=== PATIENT | female | born 1955 | race Caucasian/White ===

== ENCOUNTER → 2023-02-11 | Outpatient (CLI) | payer MEDICAID ==
[~2023-02-11] MED LIST: ALBUTEROL SULF 2.5 MG/0.5ML(0.5%) NEB SOLN ONE
== END | disposition home or self-care (01) ==
LOC: RT 11:55
PROVIDERS: ATTEND Internal Medicine Pulmonary Disease
DX: J44.9 Chronic obstructive pulmonary disease, unspecified (principal); R06.00 Dyspnea, unspecified
CPT/HCPCS: 94060; 94727; 94729

== ENCOUNTER 2023-12-07 04:59 | Inpatient (IN) | payer OTHER, MEDICAID ==
[~2023-12-07] VITALS: Ht 157.5 cm; Wt 82.7 kg
[2023-12-07] VITALS (9 sets, daily range): PULSE 69–98; RESP 14–22; O2SAT 96–100
[2023-12-07 06:17] LABS: Basophils # (auto) 0 10 ^3/uL (0-0.2); Basophils % (auto) 0.1 % (0.0-2.0); Eosinophils # (auto) 0.1 10 ^3/uL (0-0.8); Eosinophils % (auto) 1.5 % (0.0-7.0); Hematocrit 35.9 % (36.0-46.0); Hemoglobin 11.8 g/dL (12.2-16.2); Lymphocytes # (auto) 0.5 10 ^3/uL (0.4-5.4); Lymphocytes % (auto) 6.4 % (10.0-50.0); Mean Corpuscular Hemoglobin 28.4 pg (28.0-32.0); Mean Corpuscular Hgb Conc. 32.7 g/dL (32.0-36.0); Mean Corpuscular Volume 86.8 fL (80.0-100.0); Monocytes # (auto) 1.4 10 ^3/uL (0-1.3); Monocytes % (auto) 17.1 % (0.0-12.0); Neutrophils # (auto) 6.3 10 ^3/uL (1.6-8.6); Neutrophils % (auto) 74.9 % (37.0-80.0); Red Blood Cells 4.14 10^6/uL (4.0-5.20); Red Cell Distribution Width 15.6 % (11.8-14.3); White Blood Cell 8.4 10^3/uL (4.4-10.8)
[2023-12-07 06:27] LABS: Alanine Aminotransferase 25 U/L (7-40); Albumin 4.3 g/dL (3.2-4.8); Alkaline Phosphatase 63 U/L (46-116); Anion Gap 5 (5-15); Aspartate Aminotransferase 19 U/L (13-40); BUN/Creatinine Ratio 11.7 (10.0-20.0); Bilirubin, Total 0.4 mg/dL (0.2-1.0); Blood Urea Nitrogen 11 mg/dL (9-23); Calcium 9.2 mg/dL (8.7-10.4); Carbon Dioxide 29 mmol/L (20-30); Chloride 103 mmol/L (98-107); Glucose 109 mg/dL (74-106); Magnesium 1.8 mg/dL (1.6-2.6); Potassium 3.7 mmol/L (3.5-5.1); Sodium 137 mmol/L (136-145); Total Protein 6.1 g/dL (5.7-8.2)
[2023-12-07 06:31] LABS: INR 1.03 (0.9-1.15); Partial Thromboplastin Time 25.7 SEC (24.5-34.5); Prothrombin Time 10.8 sec (9.3-11.8)
[2023-12-07] MEDS: PIPERACILLIN-TAZOB 3.375GM 100 ML IV ONE (10:08)
[2023-12-07] MEDS: methylPREDNISolone SOD SUCC 125 MG/2 ML VL IV ONE (10:08)
[2023-12-07] MEDS: ALBUTEROL SULF 2.5 MG/0.5ML(0.5%) NEB SOLN NEB ONE (10:23)
[2023-12-07] MEDS: IPRATROPIUM BROM 0.5 MG/2.5ML INH SOL NEB ONE (10:23)
[2023-12-07 10:31] LABS: Urine Bacteria FEW /hpf (None Seen); Urine Blood Negative /uL (Negative); Urine Clarity Clear (Clear); Urine Protein, UAD Negative (Negative); Urine Specific Gravity 1.014 (1.001-1.035); Urine Urobilinogen Normal (Negative); Urine WBC 1 /hpf (0 - 5)
[2023-12-07 10:33] LABS: Urine Color Straw (Yellow)
[2023-12-07] MEDS ORDERED: MONT-8 PO (15:14)
[2023-12-07] MEDS ORDERED: OMEP1CAP70 PO (15:14)
[2023-12-07] MEDS ORDERED: AMOXTAB PO (15:14)
[2023-12-07] MEDS ORDERED: ATOR10TA52 PO (15:14)
[2023-12-07] MEDS ORDERED: ALBUTEROL SULF 2.5 MG/0.5ML(0.5%) NEB SOLN NEB PRN (15:15)
[2023-12-07] MEDS: SODIUM CHLORIDE 0.9% 1,000 ML IV SCH (15:15)
[2023-12-07] MEDS: ACETAMINOPHEN 325 MG TAB PO PRN (18:05)
[2023-12-07] MEDS: ALBUTEROL SULF 2.5 MG/0.5ML(0.5%) NEB SOLN NEB SCH (18:05)
[2023-12-07] MEDS: IPRATROPIUM BROM 0.5 MG/2.5ML INH SOL NEB SCH (18:05)
[2023-12-07] MEDS: IOHEXOL 350 MG/ML 100ML IJ ONE (20:05)
[2023-12-07] MEDS: ATORVASTATIN 20 MG TAB PO SCH (22:01)
[2023-12-08] VITALS (20 sets, daily range): BP systolic 117–136; BP diastolic 70–84; PULSE 72–90; RESP 14–20; TEMP 97.1–98.5; O2SAT 86–100
[2023-12-08 06:18] LABS: Hemoglobin 12.3 g/dL (12.2-16.2); Mean Corpuscular Hemoglobin 27.9 pg (28.0-32.0); Mean Corpuscular Hgb Conc. 32.4 g/dL (32.0-36.0); Mean Corpuscular Volume 86.2 fL (80.0-100.0); Red Blood Cells 4.41 10^6/uL (4.0-5.20); Red Cell Distribution Width 16.1 % (11.8-14.3); White Blood Cell 6.7 10^3/uL (4.4-10.8)
[2023-12-08 06:35] LABS: Alanine Aminotransferase 26 U/L (7-40); Albumin 4.5 g/dL (3.2-4.8); Alkaline Phosphatase 62 U/L (46-116); Anion Gap 5 (5-15); Aspartate Aminotransferase 25 U/L (13-40); BUN/Creatinine Ratio 15.7 (10.0-20.0); Blood Urea Nitrogen 14 mg/dL (9-23); Calcium 10.2 mg/dL (8.5-10.1); Carbon Dioxide 30 mmol/L (20-30); Chloride 102 mmol/L (98-107); Glucose 104 mg/dL (74-106); Potassium 4.3 mmol/L (3.5-5.1); Sodium 137 mmol/L (136-145)
[2023-12-08 06:36] LABS: Bilirubin, Total 0.4 mg/dL (0.2-1.0); Total Protein 6.5 g/dL (5.7-8.2)
[2023-12-08 06:56] LABS: Band Neutrophils % (manual) 0; Basophils % (manual) 0 (0.0-2.0); Blast Cells 0; Eosinophils % (manual) 0 (0-7); Myelocytes % 0; Promyelocytes % 0; Reactive Lymphocytes 0
[2023-12-08] MEDS ORDERED: AZIT-43 PO (09:50)
[2023-12-08] MEDS ORDERED: PRED20TA2 PO (09:50)
[2023-12-08] MEDS ORDERED: FLUT220A6 INH (09:50)
[2023-12-08] MEDS ORDERED: IPRA0.00 NEB (09:50)
[2023-12-08] MEDS ORDERED: ALBU2TAB11 PO (09:50)
[2023-12-08] MEDS ORDERED: ALBU108A5 INH (09:50)
[2023-12-08] MEDS: OMEPRAZOLE 40MG/20ML ORAL SUSP PO SCH (10:00)
[2023-12-08] MEDS: ENOXAPARIN SOD 40 MG/0.4 ML SYRINGE SC SCH (10:14)
[2023-12-08] MEDS: MONTELUKAST SODIUM 10 MG TAB PO SCH (10:14)
[2023-12-08 10:48] LABS: Lymphocytes % (manual) 12 (10.0-50.0); Metamyelocytes % 2; Monocytes % (manual) 16 (0-12); Platelet Estimate Adequate
[2023-12-08] MEDS: guaiFENesin-DM 100/10mg/5ml SYR PO PRN (12:10)
[2023-12-08] MEDS: cefTRIAXone 1GM/50ML D5W 50 ML IV ONE (13:52)
[2023-12-08] MEDS: methylPREDNISolone SOD SUCC 125 MG/2 ML VL IV SCH (22:50)
[2023-12-09] VITALS (19 sets, daily range): BP systolic 99–129; BP diastolic 55–77; PULSE 70–94; RESP 15–22; TEMP 97.4–98.2; O2SAT 91–100
[2023-12-09 05:40] LABS: COVID19 ANTIGEN SOFIA FIA NEGATIVE (NEGATIVE)
[2023-12-09] MEDS: PANTOPRAZOLE 40 MG TAB PO SCH (08:50)
[2023-12-09] MEDS: cefTRIAXone 1GM/50ML D5W 50 ML IV SCH (08:51)
[2023-12-10] VITALS (10 sets, daily range): BP systolic 117–143; BP diastolic 67–78; PULSE 67–92; RESP 16–19; TEMP 37.1; O2SAT 91–100
[2023-12-10] MEDS ORDERED: METH4PAK PO (08:30)
[2023-12-10] MEDS ORDERED: AZIT500T66 PO (08:30)
[2023-12-10 10:33] LABS: Base Excess 4.1 mmol/L (-2.0-2.0)
== END 2023-12-10 15:30 | disposition home or self-care (01) | DRG 177 ==
LOC: EDBD 04:59 → ER 04:59 → OVERFLOW 15:12 → CENTRAL 12-08 09:40
PROVIDERS: ADMIT Nurse Practitioner Family; ATTEND Family Medicine
DX: J15.69 Pneumonia due to other Gram-negative bacteria (principal); J96.01 Acute respiratory failure with hypoxia; J45.41 Moderate persistent asthma with (acute) exacerbation; J15.9 Unspecified bacterial pneumonia; K21.9 Gastro-esophageal reflux disease without esophagitis; E66.01 Morbid (severe) obesity due to excess calories; E78.00 Pure hypercholesterolemia, unspecified; Z20.822 Contact with and (suspected) exposure to COVID-19; Z68.33 Body mass index [BMI] 33.0-33.9, adult
CPT/HCPCS: 36415; 36600; 71045; 71275; 80053; 81001; 82805; 83735; 83880; 84484; 85007; 85025; 85027; 85379; 85610; 85730; 87426; 93005; 94640; 96361; 96365; 96375; 99291; G0378; J2543

== ENCOUNTER 2023-12-31 16:31 | Inpatient (IN) | payer OTHER, MEDICAID ==
[~2023-12-31] VITALS: Ht 157.5 cm; Wt 74.0 kg
[~2023-12-31 16:31] MED LIST changes: +ALBU108A5 INH; +ALBU2TAB11 PO; -ALBUTEROL SULF 2.5 MG/0.5ML(0.5%) NEB SOLN ONE; +AMOXTAB PO; +ATOR10TA52 PO; +AZIT-43 PO; +AZIT500T66 PO; +FLUT220A6 INH; +IPRA0.00 NEB; +METH4PAK PO; +MONT-8 PO; +OMEP1CAP70 PO; +PRED20TA2 PO
[2023-12-31] MEDS: IPRATROPIUM BROM 0.5 MG/2.5ML INH SOL NEB ONE (17:23)
[2023-12-31] MEDS: ALBUTEROL SULF 2.5 MG/0.5ML(0.5%) NEB SOLN NEB ONE (17:23)
[2023-12-31 17:58] LABS: Basophils # (auto) 0 10 ^3/uL (0-0.2); Basophils % (auto) 0.6 % (0.0-2.0); Eosinophils # (auto) 0.9 10 ^3/uL (0-0.8); Eosinophils % (auto) 14.1 % (0.0-7.0); Hematocrit 36.3 % (36.0-46.0); Hemoglobin 11.5 g/dL (12.2-16.2); Lymphocytes # (auto) 2.1 10 ^3/uL (0.4-5.4); Lymphocytes % (auto) 33.4 % (10.0-50.0); Mean Corpuscular Hemoglobin 27.7 pg (28.0-32.0); Mean Corpuscular Hgb Conc. 31.7 g/dL (32.0-36.0); Mean Corpuscular Volume 87.4 fL (80.0-100.0); Monocytes # (auto) 0.8 10 ^3/uL (0-1.3); Monocytes % (auto) 12.5 % (0.0-12.0); Neutrophils # (auto) 2.5 10 ^3/uL (1.6-8.6); Neutrophils % (auto) 39.4 % (37.0-80.0); Red Blood Cells 4.15 10^6/uL (4.0-5.20); Red Cell Distribution Width 16.2 % (11.8-14.3); White Blood Cell 6.3 10^3/uL (4.4-10.8)
[2023-12-31 18:06] LABS: Chloride 107 mmol/L (98-107); Potassium 4.1 mmol/L (3.5-5.1); Sodium 142 mmol/L (136-145)
[2023-12-31 18:07] LABS: Anion Gap 4 (5-15); Calcium 9.4 mg/dL (8.5-10.1); Carbon Dioxide 31 mmol/L (20-30)
[2023-12-31 18:12] LABS: BUN/Creatinine Ratio 13.2 (10.0-20.0); Blood Urea Nitrogen 12 mg/dL (9-23); Glucose 85 mg/dL (74-106)
[2023-12-31] MEDS: methylPREDNISolone SOD SUCC 125 MG/2 ML VL IV ONE (19:40)
[2024-01-01] VITALS (13 sets, daily range): BP systolic 139–154; BP diastolic 83–99; PULSE 82–97; RESP 16–22; TEMP 98.2–98.9; O2SAT 94–99
[2024-01-01] MEDS: IPRATROPIUM BROM 0.5 MG/2.5ML INH SOL NEB ONE (00:44)
[2024-01-01] MEDS: ALBUTEROL SULF 2.5 MG/0.5ML(0.5%) NEB SOLN NEB ONE (00:44)
[2024-01-01] MEDS ORDERED: HYDROcodone-ACET 5/325MG TAB PO PRN (03:00)
[2024-01-01] MEDS ORDERED: MORPHINE SULFATE INJ 2 MG/ml SYRG IV PRN (03:00)
[2024-01-01] MEDS ORDERED: ONDANSETRON HCL 4 MG/2 ML VIAL IV PRN (03:00)
[2024-01-01] MEDS ORDERED: DOCUSATE SOD 100 MG CAP PO PRN (03:00)
[2024-01-01] MEDS ORDERED: NITROGLYCERIN 0.4 MG SL TAB SL PRN (03:00)
[2024-01-01] MEDS: SODIUM CHLOR 0.9% PF (SALINE LOCK) 10ML VIAL/SYR IV SCH (06:10)
[2024-01-01] MEDS: methylPREDNISolone SOD SUCC 40 MG/ML VL IV SCH ×2 (06:16→11:19)
[2024-01-01 07:12] LABS: Basophils # (auto) 0 10 ^3/uL (0-0.2); Eosinophils # (auto) 0 10 ^3/uL (0-0.8); Eosinophils % (auto) 0.1 % (0.0-7.0); Hematocrit 36.1 % (36.0-46.0); Hemoglobin 11.7 g/dL (12.2-16.2); Lymphocytes # (auto) 0.6 10 ^3/uL (0.4-5.4); Mean Corpuscular Hemoglobin 28.3 pg (28.0-32.0); Mean Corpuscular Hgb Conc. 32.5 g/dL (32.0-36.0); Mean Corpuscular Volume 87.1 fL (80.0-100.0); Monocytes # (auto) 0.2 10 ^3/uL (0-1.3); Neutrophils # (auto) 7.8 10 ^3/uL (1.6-8.6); Neutrophils % (auto) 90.9 % (37.0-80.0); Red Blood Cells 4.15 10^6/uL (4.0-5.20); White Blood Cell 8.6 10^3/uL (4.4-10.8)
[2024-01-01 07:33] LABS: Alanine Aminotransferase 30 U/L (7-40); Albumin 4.4 g/dL (3.2-4.8); Alkaline Phosphatase 77 U/L (46-116); Anion Gap 8 (5-15); Aspartate Aminotransferase 24 U/L (13-40); BUN/Creatinine Ratio 14.1 (10.0-20.0); Bilirubin, Total 0.5 mg/dL (0.2-1.0); Blood Urea Nitrogen 13 mg/dL (9-23); Calcium 9.7 mg/dL (8.5-10.1); Carbon Dioxide 24 mmol/L (20-30); Chloride 105 mmol/L (98-107); Glucose 195 mg/dL (74-106); Potassium 4.2 mmol/L (3.5-5.1); Sodium 137 mmol/L (136-145); Total Protein 6.6 g/dL (5.7-8.2)
[2024-01-01 09:17] LABS: Urine Bacteria NONE SEEN /hpf (None Seen); Urine Blood Negative /uL (Negative); Urine Clarity Clear (Clear); Urine Color Yellow (Yellow); Urine Mucus FEW (None Seen); Urine Protein, UAD TRACE (Negative); Urine Specific Gravity 1.032 (1.001-1.035); Urine Urobilinogen Normal (Negative); Urine WBC 1 /hpf (0 - 5); Urine pH 5.5 (5.0-8.0)
[2024-01-01] MEDS: ALBUTEROL SULF 2.5 MG/0.5ML(0.5%) NEB SOLN NEB PRN (09:53)
[2024-01-01] MEDS: IPRATROPIUM BROM 0.5 MG/2.5ML INH SOL NEB PRN (09:53)
[2024-01-01] MEDS: FAMOTIDINE (10MG/ML) 2ML VL IV SCH (10:35)
[2024-01-01] MEDS: ZINC SULFATE 220mg CAP or TAB PO SCH (10:35)
[2024-01-01] MEDS: ACETAMINOPHEN 325 MG TAB PO PRN (11:19)
[2024-01-01] MEDS: FUROSEMIDE 20 MG/2 ML VIAL IV SCH (21:37)
[2024-01-01] MEDS: guaiFENesin-DM 100/10mg/5ml SYR PO PRN (21:38)
[2024-01-02] VITALS (10 sets, daily range): BP systolic 120–149; BP diastolic 63–100; PULSE 75–94; RESP 17–20; TEMP 97.1–98.3; O2SAT 93–98
[2024-01-02 06:20] LABS: Basophils # (auto) 0 10 ^3/uL (0-0.2); Basophils % (auto) 0.1 % (0.0-2.0); Eosinophils # (auto) 0 10 ^3/uL (0-0.8); Hematocrit 34.2 % (36.0-46.0); Hemoglobin 10.8 g/dL (12.2-16.2); Lymphocytes % (auto) 7.6 % (10.0-50.0); Mean Corpuscular Hemoglobin 27.7 pg (28.0-32.0); Mean Corpuscular Hgb Conc. 31.7 g/dL (32.0-36.0); Mean Corpuscular Volume 87.5 fL (80.0-100.0); Monocytes # (auto) 0.9 10 ^3/uL (0-1.3); Monocytes % (auto) 7.1 % (0.0-12.0); Neutrophils # (auto) 11.1 10 ^3/uL (1.6-8.6); Neutrophils % (auto) 85.2 % (37.0-80.0); Red Blood Cells 3.91 10^6/uL (4.0-5.20); Red Cell Distribution Width 15.8 % (11.8-14.3)
[2024-01-02 06:36] LABS: Alanine Aminotransferase 23 U/L (7-40); Alkaline Phosphatase 64 U/L (46-116); Anion Gap 7 (5-15); Aspartate Aminotransferase 15 U/L (13-40); BUN/Creatinine Ratio 18.2 (10.0-20.0); Blood Urea Nitrogen 18 mg/dL (9-23); Carbon Dioxide 26 mmol/L (20-30); Chloride 104 mmol/L (98-107); Glucose 161 mg/dL (74-106); Sodium 137 mmol/L (136-145)
[2024-01-02 06:37] LABS: Bilirubin, Total 0.4 mg/dL (0.2-1.0); Total Protein 6.1 g/dL (5.7-8.2)
[2024-01-02] MEDS: cefTRIAXone 1GM/50ML D5W 50 ML IV ONE (12:23)
[2024-01-02] MEDS: AZITHROMYCIN 500MG/ 250ML 250 ML IV ONE (13:02)
[2024-01-03] VITALS (9 sets, daily range): BP systolic 111–144; BP diastolic 59–73; PULSE 69–88; RESP 16–22; TEMP 97.8–97.9; O2SAT 88–98
[2024-01-03] MEDS: cefTRIAXone 1GM/50ML D5W 50 ML IV SCH (08:36)
[2024-01-03] MEDS: AZITHROMYCIN 500MG/ 250ML 250 ML IV SCH (09:39)
[2024-01-03] MEDS ORDERED: AZIT500T66 PO (10:37)
[2024-01-03] MEDS ORDERED: PRED20TA2 PO (10:37)
[2024-01-03] MEDS: IPRATROPIUM BROM 0.5 MG/2.5ML INH SOL NEB SCH (11:18)
[2024-01-03] MEDS: ALBUTEROL SULF 2.5 MG/0.5ML(0.5%) NEB SOLN NEB SCH (11:18)
== END 2024-01-03 15:45 | disposition home or self-care (01) | DRG 189 ==
LOC: ER 16:31 → TELE 01-01 03:04 → TELE-WESTW 01-01 15:08
PROVIDERS: ADMIT Internal Medicine Pulmonary Disease; ATTEND Internal Medicine Pulmonary Disease
DX: J96.01 Acute respiratory failure with hypoxia (principal); J45.901 Unspecified asthma with (acute) exacerbation; E78.00 Pure hypercholesterolemia, unspecified; K21.9 Gastro-esophageal reflux disease without esophagitis; E66.01 Morbid (severe) obesity due to excess calories; E87.70 Fluid overload, unspecified; Z90.710 Acquired absence of both cervix and uterus; Z68.29 Body mass index [BMI] 29.0-29.9, adult
CPT/HCPCS: 36415; 71046; 80048; 80053; 81001; 83605; 83880; 84484; 85025; 93970; 94640; G0378; J3490

== ENCOUNTER 2024-01-23 18:40 | Inpatient (IN) | payer OTHER, MEDICAID ==
[~2024-01-23] VITALS: Ht 157.5 cm; Wt 81.0 kg
[2024-01-23 21:18] LABS: Hematocrit 34.8 % (36.0-46.0); Mean Corpuscular Hemoglobin 27.4 pg (28.0-32.0); Mean Corpuscular Hgb Conc. 31.7 g/dL (32.0-36.0); Mean Corpuscular Volume 86.2 fL (80.0-100.0); Red Blood Cells 4.03 10^6/uL (4.0-5.20); Red Cell Distribution Width 15.4 % (11.8-14.3); White Blood Cell 6.8 10^3/uL (4.4-10.8)
[2024-01-23 21:22] LABS: Band Neutrophils % (manual) 0; Basophils % (manual) 0 (0.0-2.0); Blast Cells 0; Metamyelocytes % 0; Myelocytes % 0; Promyelocytes % 0; Reactive Lymphocytes 0
[2024-01-23] MEDS: DexAMETHasone SOD PHOS 10MG/1ML VIAL INJ IM ONE (21:40)
[2024-01-23 22:05] LABS: Alanine Aminotransferase 22 U/L (7-40); Albumin 4.1 g/dL (3.2-4.8); Alkaline Phosphatase 69 U/L (46-116); Anion Gap 7 (5-15); Aspartate Aminotransferase 27 U/L (13-40); BUN/Creatinine Ratio 9.9 (10.0-20.0); Blood Urea Nitrogen 9 mg/dL (9-23); Calcium 9.5 mg/dL (8.7-10.4); Carbon Dioxide 25 mmol/L (20-30); Chloride 106 mmol/L (98-107); Glucose 106 mg/dL (74-106); Lipase 43 U/L (12-53); Sodium 138 mmol/L (136-145)
[2024-01-23 22:06] LABS: Bilirubin, Total 0.5 mg/dL (0.2-1.0); Total Protein 6.6 g/dL (5.7-8.2)
[2024-01-23 22:53] LABS: Eosinophils % (manual) 22 (0-7); Lymphocytes % (manual) 10 (10.0-50.0); Monocytes % (manual) 9 (0-12); Platelet Estimate Adequate
[2024-01-23 22:54] LABS: Anisocytosis Slight
[2024-01-23 22:55] LABS: Urine Bacteria NONE SEEN /hpf (None Seen); Urine Blood Negative /uL (Negative); Urine Clarity Clear (Clear); Urine Color Yellow (Yellow); Urine Mucus FEW (None Seen); Urine Protein, UAD 1+ (Negative); Urine Specific Gravity 1.031 (1.001-1.035); Urine WBC 1 /hpf (0 - 5); Urine pH 6.5 (5.0-8.0)
[2024-01-24] MEDS: ALBUTEROL SULF 2.5 MG/0.5ML(0.5%) NEB SOLN NEB ONE (00:34)
[2024-01-24] MEDS: IPRATROPIUM BROM 0.5 MG/2.5ML INH SOL NEB ONE (00:35)
[2024-01-24 04:00] VITALS: PULSE 91; RESP 22; O2SAT 91
[2024-01-24] MEDS ORDERED: HYDROcodone-ACET 5/325MG TAB PO PRN (05:15)
[2024-01-24] MEDS ORDERED: MORPHINE SULFATE INJ 2 MG/ml SYRG IV PRN (05:15)
[2024-01-24] MEDS ORDERED: NITROGLYCERIN 0.4 MG SL TAB SL PRN (05:15)
[2024-01-24] MEDS ORDERED: DOCUSATE SOD 100 MG CAP PO PRN (05:15)
[2024-01-24] MEDS ORDERED: IPRATROPIUM BROM 0.5 MG/2.5ML INH SOL NEB PRN (05:15)
[2024-01-24] MEDS ORDERED: ACETAMINOPHEN 325 MG TAB PO PRN (05:15)
[2024-01-24] MEDS ORDERED: ONDANSETRON HCL 4 MG/2 ML VIAL IV PRN (05:15)
[2024-01-24] MEDS ORDERED: ALBUTEROL SULF 2.5 MG/0.5ML(0.5%) NEB SOLN NEB PRN (05:15)
[2024-01-24 06:46] LABS: Basophils # (auto) 0 10 ^3/uL (0-0.2); Basophils % (auto) 0.6 % (0.0-2.0); Eosinophils # (auto) 0 10 ^3/uL (0-0.8); Eosinophils % (auto) 0.3 % (0.0-7.0); Hematocrit 32.9 % (36.0-46.0); Hemoglobin 10.6 g/dL (12.2-16.2); Lymphocytes # (auto) 0.3 10 ^3/uL (0.4-5.4); Lymphocytes % (auto) 9.1 % (10.0-50.0); Mean Corpuscular Hemoglobin 27.4 pg (28.0-32.0); Mean Corpuscular Hgb Conc. 32.1 g/dL (32.0-36.0); Mean Corpuscular Volume 85.5 fL (80.0-100.0); Monocytes # (auto) 0.1 10 ^3/uL (0-1.3); Monocytes % (auto) 2.3 % (0.0-12.0); Neutrophils # (auto) 2.6 10 ^3/uL (1.6-8.6); Neutrophils % (auto) 87.7 % (37.0-80.0); Red Blood Cells 3.85 10^6/uL (4.0-5.20)
[2024-01-24 07:18] LABS: Alanine Aminotransferase 24 U/L (7-40); Albumin 4.3 g/dL (3.2-4.8); Alkaline Phosphatase 66 U/L (46-116); Anion Gap 6 (5-15); Aspartate Aminotransferase 24 U/L (13-40); BUN/Creatinine Ratio 15.2 (10.0-20.0); Bilirubin, Total 0.3 mg/dL (0.2-1.0); Blood Urea Nitrogen 14 mg/dL (9-23); Calcium 9.2 mg/dL (8.5-10.1); Carbon Dioxide 25 mmol/L (20-30); Chloride 106 mmol/L (98-107); Glucose 209 mg/dL (74-106); Potassium 3.8 mmol/L (3.5-5.1); Sodium 137 mmol/L (136-145); Total Protein 6.1 g/dL (5.7-8.2)
[2024-01-24 07:45] VITALS: PULSE 85; RESP 15; O2SAT 97
[2024-01-24] MEDS: SODIUM CHLORIDE 0.9% 1,000 ML IV SCH (09:45)
[2024-01-24] MEDS: IOHEXOL 350 MG/ML 100ML IJ ONE (09:56)
[2024-01-24] MEDS: ASPirin 81 mg TAB PO SCH (10:05)
[2024-01-24] MEDS: DexAMETHasone SOD PHOS 10MG/1ML VIAL INJ IV SCH (10:05)
[2024-01-24] MEDS: FAMOTIDINE (10MG/ML) 2ML VL IV SCH (10:05)
[2024-01-24] MEDS: ASPirin 81 mg TAB PO ONE (10:06)
[2024-01-24 11:22] VITALS: BP 148/92; PULSE 86; RESP 20; TEMP 98.6; O2SAT 94
[2024-01-24] MEDS: guaiFENesin-DM 100/10mg/5ml SYR PO PRN (11:43)
[2024-01-24 14:15] VITALS: BP 113/70; PULSE 84; RESP 25; O2SAT 95
[2024-01-24] MEDS ORDERED: ATORVASTATIN 20 MG TAB PO SCH (22:00)
== END 2024-01-24 15:10 | disposition home or self-care (01) | DRG 189 ==
LOC: ER 18:40 → TELE 01-24 05:24 → UNDODEPER 01-24 14:51 → TELE 01-24 17:05
PROVIDERS: ADMIT Nurse Practitioner Acute Care; ATTEND Nurse Practitioner Acute Care
DX: J96.01 Acute respiratory failure with hypoxia (principal); J44.1 Chronic obstructive pulmonary disease with (acute) exacerbation; J45.901 Unspecified asthma with (acute) exacerbation; J98.11 Atelectasis; J44.0 Chronic obstructive pulmonary disease with (acute) lower respiratory infection; E78.5 Hyperlipidemia, unspecified; E66.01 Morbid (severe) obesity due to excess calories; R79.89 Other specified abnormal findings of blood chemistry; I10 Essential (primary) hypertension; Z82.5 Family history of asthma and other chronic lower respiratory diseases; Z83.3 Family history of diabetes mellitus; Z82.3 Family history of stroke; Z68.32 Body mass index [BMI] 32.0-32.9, adult; Z79.899 Other long term (current) drug therapy
CPT/HCPCS: 36415; 71045; 71275; 80053; 81001; 83690; 83880; 84484; 85007; 85025; 85027; 85379; 94640; 96372; G0378; J1100; J3490

== ENCOUNTER 2024-02-17 07:20 | Emergency (ER) | payer OTHER, MEDICAID | END 2024-02-17 07:42 | disposition left against medical advice (07) | LOC: ER 07:20 | DX: R05.9 Cough, unspecified (principal); Z53.21 Procedure and treatment not carried out due to patient leaving prior to being seen by health care provider ==

== ENCOUNTER 2024-02-21 03:04 | Emergency (ER) | payer OTHER, MEDICAID ==
[~2024-02-21] VITALS: Ht 152.4 cm; Wt 77.2 kg
[2024-02-21 04:08] VITALS: BP 142/93; PULSE 76; RESP 18; TEMP 98.4
[2024-02-21] MEDS ORDERED: PROM1SOL4 PO (05:37)
[2024-02-21] MEDS ORDERED: FURO20TA3 PO (05:37)
[2024-02-21 06:16] VITALS: O2SAT 95
== END 2024-02-21 06:49 | disposition home or self-care (01) ==
LOC: ER 03:04
DX: R60.0 Localized edema (principal); J45.909 Unspecified asthma, uncomplicated; E78.5 Hyperlipidemia, unspecified
CPT/HCPCS: 71045